=== PATIENT | male | born 1980 | race Caucasian/White ===

== ENCOUNTER 2017-07-23 09:55 | Emergency (ER) | payer BC, OTHER ==
[~2017-07-23] VITALS: Ht 167.6 cm; Wt 130.0 kg
[2017-07-23 09:58] VITALS: TEMP 36.5; Ht 167.6 cm; Wt 130.0 kg
[2017-07-23 10:09] VITALS: O2SAT 99
--- NOTE | 2017-07-23 11:37 | EMERGENCY ROOM VISIT NOTE ---
History Report prepared by [place]cio: Yessi Rivas Under the Supervision of: Dr. Abiel Mason D.O. First contact with patient: 11:10 Chief Complaint: DIZZY Stated Complaint: FEELING DIZZY,CONGESTED, HOT COLD, NAUSEA Nursing Triage Summary: pt to the ED with c/o dizziness and congested and hot and cold since 3 am dizzy like the room is spinning no vomitting no pain History of Present Illness The patient is a 36 year old male who presents to the Emergency Room with complaints of constant dizziness beginning at 3 am today, about 7 hours ago. The patient describes his dizziness as the "room is spinning". He reports head congestion, nausea, hot and cold flashes but denies any fever, or vomiting. He reports his symptoms have slightly resolved since this morning. The patent denies ever having any symptoms like this before. He denies any recent sick contact. The patient has no active medical problems or history of surgeries. He denies any alcohol use. He notes occasional alcohol use. Source of History: patient Onset: 7 hours ago Position: other (generalized) Quality: other (dizziness) Timing: constant Associated Symptoms: + nausea, No fevers, No vomiting Review of Systems See HPI for pertinent positives & negatives. A total of 10 systems reviewed and were otherwise negative. Past Medical & Surgical Medical Problems: (1) No Known Active Medical Problems Family History Patient reports no known family medical history. Social History Smoking Status: Never Smoker Smokeless Tobacco Use: No Alcohol Use: occasionally Marital Status: Housing Status: lives with significant other Current/Historical Medications Scheduled Amoxicillin & Pot Clavulanate (Augmentin 875-125 mg), 1 TAB PO BID Allergies Coded Allergies: No Known Allergies (Unverified , 07/23/17) Physical Exam Vital Signs Date Time Temp Pulse Resp B/P (MAP) Pulse Ox O2 Delivery O2 Flow Rate FiO2 07/23/17 12:29 74 18 113/46 98 07/23/17 11:45 62 20 105/68 98 Room Air 07/23/17 10:12 63 07/23/17 10:09 58 124/71 79 138/78 79 118/70 07/23/17 10:09 99 Room Air 07/23/17 09:58 36.5 79 16 130/80 98 Room Air Physical Exam GENERAL: Patient is awake, alert, and in no acute distress. Patient is resting comfortably and showing no signs of anxiety EYES: The conjunctivae are clear. The pupils are round and reactive. EARS, NOSE, MOUTH AND THROAT: The nose is without any evidence of any deformity. Mucous membranes are moist tongue is midline. TMs clear bilaterally. NECK: The neck is nontender and supple. RESPIRATORY: Normal respiratory effort is noted there is no evidence of wheezing rhonchi or rales CARDIOVASCULAR: Regular rate and rhythm noted there no murmurs rubs or gallops normal S1 normal S2 GASTROINTESTINAL: The abdomen is soft. Bowel sounds are present in all quadrants. Abdomen is nontender MUSCULOSKELETAL/EXTREMITIES: There is no evidence of gross deformity full range of motion is noted in the hips and shoulders SKIN: There is no obvious evidence of any rash. There are no petechiae, pallor or cyanosis noted. NEUROLOGIC: Patient is awake alert and oriented x3 strength is symmetric patellar reflexes are 2+ bilaterally Medical Decision & Procedures ER Provider Diagnostic Interpretation: Radiology results as stated below per my review and radiologist interpretation: HEAD WITHOUT CONTRAST (CT). Findings: Acute left maxillary sinusitis. All remaining sinuses are considered clear. The mastoids are clear. Minimal mucosal thickening of the sphenoid sinuses The calvarium and skull base are intact. The ventricles and sulci are within normal limits. There is no mass, hematoma, midline shift, or acute infarct. Impression: 1. No acute intracranial abnormality. 2. Acute left maxillary sinusitis. Minimal mucosal thickening of the sphenoid sinuses. The above report was generated using voice recognition software. It may contain grammatical, syntax or spelling errors. Electronically signed by: Wagner Orantes M.D. SINUSES-MAXILLOFACIAL W/O FINDINGS: Carpenter Mold topogram: Unremarkable. Mucosal thickening and layering fluid in the left maxillary sinus. No sclerosis of the maxillary sinus beasley. Mild mucosal thickening and ethmoid air cells greater on the left. Mucosal thickening in the left frontal sinus inferiorly. Mild mucosal thickening in the sphenoid sinuses, greater on the left. No evidence of osseous erosion. Mucosal thickening narrows the left ostiomeatal unit. Mucosal obstruction of the left nasofrontal ethmoidal recess. Minimal rightward deviation of the bony nasal septum with bony spurring to the right inferior turbinate. Bony optic canals and carotid siphons intact. Orbits intact. Soft tissues of the face intact. Limited intracranial evaluation within normal limits. IMPRESSION: 1. Findings suggest acute sinusitis of the left maxillary sinus with additional mucosal thickening/involvement as above. No osseous erosion. No evidence of chronic sinusitis. 2. No significant anatomic variant. Electronically signed by: Ezra Brand M.D. ED Course 1113: The patient was evaluated in room A11B. A complete history and physical examination were performed. 1152: I updated the patient on his test results. 1206: Upon reevaluation, the patient is resting. I discussed the results and treatment plan with him. He verbalized agreement of the treatment plan. The patient was discharged home. Medical Decision Differential diagnosis: Etiologies such as benign positional vertigo, dehydration, hypovolemia, anemia, tumor, infection, hypoglycemia, electrolyte abnormalities, cardiac sources, intracerebral event, toxicologic, neurologic, as well as others were entertained. Nursing notes reviewed. The patient is a 36-year-old male who presented to emergency department for an evaluation of dizziness. The patient describes dizziness which appears to be consistent with vertigo but also has a frontal headache. The patient's history and physical exam appear to be consistent with a sinus infection. CT of the head did reveal signs of acute sinusitis. He was encouraged to continue using Motrin and Tylenol for pain and consider starting a nasal spray such as Flonase. He was also started on antibiotic. He was encouraged to rest and avoid any straining Cytovene follow-up with his primary care physician soon as possible. Otherwise she was encouraged to return the emergency Department immediately if symptoms change worsen or the need arises. Medication Reconcilliation Current Medication List: was personally reviewed by me Blood Pressure Screening Patient's blood pressure: Normal blood pressure Impression Primary Impression: Sinusitis Additional Impression: Vertigo Scribe Attestation The scribe's documentation has been prepared under my direction and personally reviewed by me in its entirety. I confirm that the note above accurately reflects all work, treatment, procedures, and medical decision making performed by me. Departure Information Dispostion Home / Self-Care Prescriptions Amoxicillin & Pot Clavulanate (Augmentin 875-125 mg) 1 Tab Tab 1 TAB PO BID, #14 TAB Prov: Abiel Mason, 07/23/17 Forms HOME CARE DOCUMENTATION FORM, IMPORTANT VISIT INFORMATION Patient Instructions ED Vertigo Unspecified, My [facility], Sinusitis Acute Additional Instructions Call your family to schedule a follow-up appointment. Continue using Motrin and Tylenol as directed for pain and fever. Consider using a nasal spray such as Flonase for symptomatic relief. Problem Qualifiers Primary Impression: Sinusitis Sinusitis location: maxillary Chronicity: acute Recurrence: not specified as recurrent Qualified Codes: J01.00 - Acute maxillary sinusitis, unspecified
--- NOTE | 2017-07-23 11:39 | DIAGNOSTIC IMAGING REPORT ---
HEAD WITHOUT CONTRAST (CT) CT DOSE: HISTORY: Headaches BLANK vertigo TECHNIQUE: Multiaxial CT images of the head were performed without the use of intravenous contrast. A dose lowering technique was utilized adhering to the principles of ALARA. Comparison: None. Findings: Acute left maxillary sinusitis. All remaining sinuses are considered clear. The mastoids are clear. Minimal mucosal thickening of the sphenoid sinuses The calvarium and skull base are intact. The ventricles and sulci are within normal limits. There is no mass, hematoma, midline shift, or acute infarct. Impression: 1. No acute intracranial abnormality. 2. Acute left maxillary sinusitis. Minimal mucosal thickening of the sphenoid sinuses. The above report was generated using voice recognition software. It may contain grammatical, syntax or spelling errors. Electronically signed by: Wagner Orantes M.D. 07/23/2017 11:37 AM Dictated Date/Time: 07/23/2017 11:36 AM
--- NOTE | 2017-07-23 11:42 | DIAGNOSTIC IMAGING REPORT ---
SINUSES-MAXILLOFACIAL W/O CLINICAL HISTORY: 36 years-old Male presenting with BLANK and vertigo, congestion, dizziness, nausea. TECHNIQUE: Multidetector CT of the sinuses was performed without the use of intravenous contrast. IV contrast: None. A dose lowering technique was used consistent with the principles of ALARA (as low as reasonably achievable). COMPARISON: None. CT DOSE (mGy.cm): The estimated cumulative dose is 1280.[address] head. FINDINGS: Mice Raiser topogram: Unremarkable. Mucosal thickening and layering fluid in the left maxillary sinus. No sclerosis of the maxillary sinus beasley. Mild mucosal thickening and ethmoid air cells greater on the left. Mucosal thickening in the left frontal sinus inferiorly. Mild mucosal thickening in the sphenoid sinuses, greater on the left. No evidence of osseous erosion. Mucosal thickening narrows the left ostiomeatal unit. Mucosal obstruction of the left nasofrontal ethmoidal recess. Minimal rightward deviation of the bony nasal septum with bony spurring to the right inferior turbinate. Bony optic canals and carotid siphons intact. Orbits intact. Soft tissues of the face intact. Limited intracranial evaluation within normal limits. IMPRESSION: 1. Findings suggest acute sinusitis of the left maxillary sinus with additional mucosal thickening/involvement as above. No osseous erosion. No evidence of chronic sinusitis. 2. No significant anatomic variant. Electronically signed by: Ezra Brand M.D. 07/23/2017 11:40 AM Dictated Date/Time: 07/23/2017 11:37 AM
[2017-07-23] MEDS ORDERED: AMOX875T PO (11:57)
[2017-07-23 12:29] VITALS: BP 113/46; PULSE 74; O2SAT 98
== END 2017-07-23 12:29 | disposition home or self-care (01) ==
LOC: C.EDB 09:56 → C.EDA 12:29
DX: J01.00 Acute maxillary sinusitis, unspecified (principal); R11.0 Nausea